=== PATIENT | female | born 1950 | race Caucasian/White ===

== ENCOUNTER 2021-02-28 10:06 | Outpatient (CLI) | payer MEDICARE | END 2021-02-28 10:07 | disposition home or self-care (01) | LOC: CSHWCC 10:06 | PROVIDERS: ATTEND Nurse Practitioner Family | DX: I87.331 Chronic venous hypertension (idiopathic) with ulcer and inflammation of right lower extremity (principal); E11.621 Type 2 diabetes mellitus with foot ulcer; L97.511 Non-pressure chronic ulcer of other part of right foot limited to breakdown of skin; E11.21 Type 2 diabetes mellitus with diabetic nephropathy; G99.0 Autonomic neuropathy in diseases classified elsewhere; I21.9 Acute myocardial infarction, unspecified; I25.84 Coronary atherosclerosis due to calcified coronary lesion; I70.203 Unspecified atherosclerosis of native arteries of extremities, bilateral legs; L97.512 Non-pressure chronic ulcer of other part of right foot with fat layer exposed; I89.0 Lymphedema, not elsewhere classified; J44.9 Chronic obstructive pulmonary disease, unspecified; M86.671 Other chronic osteomyelitis, right ankle and foot; Z72.0 Tobacco use | CPT/HCPCS: 97139; G0463; 99213 ==

== ENCOUNTER 2021-03-21 10:53 | Outpatient (CLI) | payer MEDICARE | END 2021-03-21 10:54 | disposition home or self-care (01) | LOC: CSHWCC 10:53 | PROVIDERS: ATTEND Nurse Practitioner Family | DX: E11.621 Type 2 diabetes mellitus with foot ulcer (principal); L97.511 Non-pressure chronic ulcer of other part of right foot limited to breakdown of skin; E11.21 Type 2 diabetes mellitus with diabetic nephropathy; E11.43 Type 2 diabetes mellitus with diabetic autonomic (poly)neuropathy; I21.9 Acute myocardial infarction, unspecified; I25.84 Coronary atherosclerosis due to calcified coronary lesion; E11.59 Type 2 diabetes mellitus with other circulatory complications; I70.203 Unspecified atherosclerosis of native arteries of extremities, bilateral legs; I87.331 Chronic venous hypertension (idiopathic) with ulcer and inflammation of right lower extremity; L97.512 Non-pressure chronic ulcer of other part of right foot with fat layer exposed; I89.0 Lymphedema, not elsewhere classified; J44.9 Chronic obstructive pulmonary disease, unspecified; M86.671 Other chronic osteomyelitis, right ankle and foot; Z72.0 Tobacco use | CPT/HCPCS: 11042; 97139; G0463; 99213 ==

== ENCOUNTER 2021-04-11 08:49 | Outpatient (CLI) | payer MEDICARE | END 2021-04-11 08:50 | disposition home or self-care (01) | LOC: CSHWCC 08:49 | PROVIDERS: ATTEND Nurse Practitioner Family | DX: I87.331 Chronic venous hypertension (idiopathic) with ulcer and inflammation of right lower extremity (principal); E11.621 Type 2 diabetes mellitus with foot ulcer; L97.512 Non-pressure chronic ulcer of other part of right foot with fat layer exposed; L97.516 Non-pressure chronic ulcer of other part of right foot with bone involvement without evidence of necrosis; I89.0 Lymphedema, not elsewhere classified; E11.69 Type 2 diabetes mellitus with other specified complication; E11.51 Type 2 diabetes mellitus with diabetic peripheral angiopathy without gangrene; E11.43 Type 2 diabetes mellitus with diabetic autonomic (poly)neuropathy; M86.671 Other chronic osteomyelitis, right ankle and foot; I70.203 Unspecified atherosclerosis of native arteries of extremities, bilateral legs; I25.84 Coronary atherosclerosis due to calcified coronary lesion; J44.9 Chronic obstructive pulmonary disease, unspecified; I21.9 Acute myocardial infarction, unspecified; E11.21 Type 2 diabetes mellitus with diabetic nephropathy; Z72.0 Tobacco use | CPT/HCPCS: 99213; G0463 ==

== ENCOUNTER 2021-09-18 08:14 | Outpatient (CLI) | payer MEDICARE | END 2021-09-18 08:15 | disposition home or self-care (01) | LOC: CSHWCC 08:14 | PROVIDERS: ATTEND Nurse Practitioner Family | DX: I87.331 Chronic venous hypertension (idiopathic) with ulcer and inflammation of right lower extremity (principal); E11.621 Type 2 diabetes mellitus with foot ulcer; L97.511 Non-pressure chronic ulcer of other part of right foot limited to breakdown of skin; L97.512 Non-pressure chronic ulcer of other part of right foot with fat layer exposed; I89.0 Lymphedema, not elsewhere classified; E11.21 Type 2 diabetes mellitus with diabetic nephropathy; G99.0 Autonomic neuropathy in diseases classified elsewhere; I21.9 Acute myocardial infarction, unspecified; I25.84 Coronary atherosclerosis due to calcified coronary lesion; I70.203 Unspecified atherosclerosis of native arteries of extremities, bilateral legs; J44.9 Chronic obstructive pulmonary disease, unspecified; M86.671 Other chronic osteomyelitis, right ankle and foot; Z72.0 Tobacco use | CPT/HCPCS: 11042; 97139; G0463; 99213 ==

== ENCOUNTER 2021-10-16 09:01 | Outpatient (CLI) | payer MEDICARE | END 2021-10-16 09:02 | disposition home or self-care (01) | LOC: CSHWCC 09:01 | PROVIDERS: ATTEND Nurse Practitioner Family | DX: I87.331 Chronic venous hypertension (idiopathic) with ulcer and inflammation of right lower extremity (principal); E11.21 Type 2 diabetes mellitus with diabetic nephropathy; E11.621 Type 2 diabetes mellitus with foot ulcer; L97.511 Non-pressure chronic ulcer of other part of right foot limited to breakdown of skin; G99.0 Autonomic neuropathy in diseases classified elsewhere; I25.2 Old myocardial infarction; I25.84 Coronary atherosclerosis due to calcified coronary lesion; I70.203 Unspecified atherosclerosis of native arteries of extremities, bilateral legs; L97.512 Non-pressure chronic ulcer of other part of right foot with fat layer exposed; I89.0 Lymphedema, not elsewhere classified; J44.9 Chronic obstructive pulmonary disease, unspecified; M86.671 Other chronic osteomyelitis, right ankle and foot; Z72.0 Tobacco use | CPT/HCPCS: 11042; 97139; G0463; 99212 ==

== ENCOUNTER 2021-11-06 08:58 | Outpatient (CLI) | payer MEDICARE | END 2021-11-06 08:59 | disposition home or self-care (01) | LOC: CSHWCC 08:58 | PROVIDERS: ATTEND Nurse Practitioner Family | DX: I87.331 Chronic venous hypertension (idiopathic) with ulcer and inflammation of right lower extremity (principal); E11.621 Type 2 diabetes mellitus with foot ulcer; L97.511 Non-pressure chronic ulcer of other part of right foot limited to breakdown of skin; L97.512 Non-pressure chronic ulcer of other part of right foot with fat layer exposed; E11.21 Type 2 diabetes mellitus with diabetic nephropathy; E11.43 Type 2 diabetes mellitus with diabetic autonomic (poly)neuropathy; I21.9 Acute myocardial infarction, unspecified; I25.10 Atherosclerotic heart disease of native coronary artery without angina pectoris; I25.84 Coronary atherosclerosis due to calcified coronary lesion; I70.203 Unspecified atherosclerosis of native arteries of extremities, bilateral legs; I89.0 Lymphedema, not elsewhere classified; E11.69 Type 2 diabetes mellitus with other specified complication; M86.671 Other chronic osteomyelitis, right ankle and foot; J44.9 Chronic obstructive pulmonary disease, unspecified; Z72.0 Tobacco use | CPT/HCPCS: 36416 ==

== ENCOUNTER 2021-12-19 14:37 | Outpatient (CLI) | payer MEDICARE | END 2021-12-19 14:38 | disposition home or self-care (01) | LOC: CSHWCC 14:37 | PROVIDERS: ATTEND Nurse Practitioner Family | DX: I87.331 Chronic venous hypertension (idiopathic) with ulcer and inflammation of right lower extremity (principal); E11.621 Type 2 diabetes mellitus with foot ulcer; E11.51 Type 2 diabetes mellitus with diabetic peripheral angiopathy without gangrene; E11.21 Type 2 diabetes mellitus with diabetic nephropathy; L97.511 Non-pressure chronic ulcer of other part of right foot limited to breakdown of skin; L97.512 Non-pressure chronic ulcer of other part of right foot with fat layer exposed; I70.203 Unspecified atherosclerosis of native arteries of extremities, bilateral legs; G99.0 Autonomic neuropathy in diseases classified elsewhere; I21.9 Acute myocardial infarction, unspecified; I25.84 Coronary atherosclerosis due to calcified coronary lesion; M86.671 Other chronic osteomyelitis, right ankle and foot; J44.9 Chronic obstructive pulmonary disease, unspecified; I89.0 Lymphedema, not elsewhere classified; Z72.0 Tobacco use | CPT/HCPCS: 97139; G0463; 99212 ==

== ENCOUNTER 2024-10-28 17:05 | Inpatient (IN) | payer MEDICARE ==
[2024-10-28] MEDS ORDERED: Ondansetron ODT 4 MG TAB PO PRN ×2 (17:31→19:30)
[2024-10-28] MEDS ORDERED: Dextrose 50% Abboject 50 ML SYRINGE SLOW IVP PRN (17:33)
[2024-10-28] MEDS ORDERED: Dextrose 5% in Water 1,000 ML IV PRN (17:33)
[2024-10-28] MEDS ORDERED: Insulin Lispro 100 UNIT/ML 10 ML VIAL SC PRN (17:33)
[2024-10-28] MEDS ORDERED: Glucagon 1 MG/ML KIT IM PRN (17:33)
[2024-10-28] MEDS ORDERED: hydrALAZINE 20 MG/ML VIAL SLOW IVP PRN (17:35)
[2024-10-28] MEDS ORDERED: Sodium Chloride 0.9% 1,000 ML IV SCH (17:45)
[2024-10-28] MEDS ORDERED: Ondansetron PF 4 MG/2 ML Vial IVP PRN (17:45)
[2024-10-28 17:47] VITALS: BMI 28.2
[2024-10-28] MEDS ORDERED: Heparin 5,000 UNITS/ML VIAL SC SCH (21:00)
[2024-10-28] MEDS ORDERED: Benzonatate 100 MG CAP PO PRN (21:50)
[2024-10-29 03:33] LABS: #Basophils 0.05 10x3/uL (0.0-0.2); #Eosinophils 0.02 10x3/uL (0.0-0.5); #Monocytes 0.73 10x3/uL (0.0-1.1); #Neutrophils 8.26 10x3/uL (1.5-8.4); %Basophils 0.5 % (0.0-2.0); %Eosinophils 0.2 % (0.0-6.0); %Lymphocytes 12.6 % (18.0-47.0); %Neutrophils 79.4 % (40.0-75.0); Hematocrit 41.8 % (34.9-44.5); Hemoglobin 14.1 g/dL (12.0-15.5); Mean Corpuscular HGB CONC 33.7 g/dL (32.0-36.0); Mean Corpuscular Hemoglobin 28.8 pg (27.0-33.0); Mean Corpuscular Volume 85.5 fL (81.6-98.3); Mean Platelet Volume 9.7 fL (7.4-10.4); Platelet Count 270 10x3/uL (150-450); RBC Distribution Width 14.6 % (11.5-14.5); Red Blood Cell (RBC) Count 4.89 10x6/uL (3.90-5.03); White Blood Cell (WBC) Count 10.4 10x3/uL (3.5-10.5)
[2024-10-29 03:54] LABS: ALT (SGPT) 24 U/L (8-55); AST (SGOT) 25 U/L (5-34); Albumin 3.1 g/dL (3.4-4.8); Alkaline Phosphatase 114 U/L (40-110); Anion Gap 16 mmol/L (10-20); BUN (Urea Nitrogen) 23 mg/dL (9.8-20.1); Bilirubin, Total 0.7 mg/dL (0.2-1.2); Calc. Creatinine Clearance 40 mL/min (70-130); Calcium 8.5 mg/dL (7.8-10.44); Carbon Dioxide 18 mmol/L (23-31); Chloride 112 mmol/L (98-107); Estimated GFR 37; Globulin 3.1 g/dL (2.4-3.5); Glucose 243 mg/dL (83-110); Potassium 3.5 mmol/L (3.5-5.1); Protein, Total 6.2 g/dL (5.8-8.1); Sodium 142 mmol/L (136-145)
[2024-10-29 06:54] LABS: Hematocrit 41.5 % (34.9-44.5); Mean Corpuscular HGB CONC 33.7 g/dL (32.0-36.0); Mean Corpuscular Hemoglobin 28.8 pg (27.0-33.0); Mean Corpuscular Volume 85.4 fL (81.6-98.3); Red Blood Cell (RBC) Count 4.86 10x6/uL (3.90-5.03); White Blood Cell (WBC) Count 10.1 10x3/uL (3.5-10.5)
[2024-10-29 06:55] LABS: #Basophils 0.06 10x3/uL (0.0-0.2); #Eosinophils 0.03 10x3/uL (0.0-0.5); #Monocytes 0.51 10x3/uL (0.0-1.1); #Neutrophils 8.03 10x3/uL (1.5-8.4); %Basophils 0.6 % (0.0-2.0); %Eosinophils 0.3 % (0.0-6.0); %Lymphocytes 14.3 % (18.0-47.0); %Neutrophils 79.5 % (40.0-75.0); Platelet Count 278 10x3/uL (150-450); RBC Distribution Width 14.6 % (11.5-14.5)
[2024-10-29 07:12] LABS: Bilirubin, Total 0.7 mg/dL (0.2-1.2); Calcium 8.3 mg/dL (7.8-10.44); Chloride 112 mmol/L (98-107); Potassium 3.7 mmol/L (3.5-5.1); Sodium 142 mmol/L (136-145)
[2024-10-29 07:29] LABS: ALT (SGPT) 25 U/L (8-55); AST (SGOT) 25 U/L (5-34); Albumin 3.2 g/dL (3.4-4.8); Alkaline Phosphatase 120 U/L (40-110); Anion Gap 17 mmol/L (10-20); BUN (Urea Nitrogen) 22 mg/dL (9.8-20.1); Calc. Creatinine Clearance 40 mL/min (70-130); Carbon Dioxide 17 mmol/L (23-31); Estimated GFR 36; Globulin 2.8 g/dL (2.4-3.5); Glucose 266 mg/dL (83-110)
[2024-10-29 09:49] LABS: Magnesium 1.7 mg/dL (1.6-2.6)
[2024-10-29] MEDS: Pregabalin 50 MG CAP PO SCH ×2 (12:17→21:45)
[2024-10-29] MEDS: Aspirin 81 mg Enteric Coated Tablet PO SCH (12:18)
[2024-10-29] MEDS: Insulin Lispro 100 UNIT/ML 10 ML VIAL SC PRN ×2 (12:19→21:51)
[2024-10-29 12:45] LABS: Hemoglobin A1c 9.3 % (4.0-6.0)
[2024-10-29] MEDS: Acetaminophen 325 MG TAB PO PRN (13:56)
[2024-10-29] MEDS: Lisinopril 20 MG TAB PO SCH (14:26)
[2024-10-29] MEDS: Sodium Chloride 0.9% 1,000 ML IV SCH (17:45)
[2024-10-29] MEDS: Magnesium 2 GM/50 ML(in water) 2 GM in Premix 1 BAG IVPB SCH (18:51)
[2024-10-29] MEDS: traMADol HCl 50 MG TAB PO PRN (21:43)
[2024-10-29] MEDS: Atorvastatin Calcium 20 MG TAB PO SCH (21:43)
[2024-10-29] MEDS: Apixaban 2.5 MG TAB PO SCH (21:44)
[2024-10-30 04:00] LABS: #Basophils 0.06 10x3/uL (0.0-0.2); #Eosinophils 0.16 10x3/uL (0.0-0.5); #Monocytes 0.56 10x3/uL (0.0-1.1); #Neutrophils 5.44 10x3/uL (1.5-8.4); %Basophils 0.8 % (0.0-2.0); %Lymphocytes 20.7 % (18.0-47.0); %Monocytes 7.1 % (0.0-10.0); %Neutrophils 69.1 % (40.0-75.0); Hematocrit 37.8 % (34.9-44.5); Hemoglobin 12.8 g/dL (12.0-15.5); Mean Corpuscular HGB CONC 33.9 g/dL (32.0-36.0); Mean Corpuscular Hemoglobin 28.6 pg (27.0-33.0); Mean Corpuscular Volume 84.4 fL (81.6-98.3); Mean Platelet Volume 9.8 fL (7.4-10.4); Platelet Count 245 10x3/uL (150-450); RBC Distribution Width 14.7 % (11.5-14.5); Red Blood Cell (RBC) Count 4.48 10x6/uL (3.90-5.03); White Blood Cell (WBC) Count 7.9 10x3/uL (3.5-10.5)
[2024-10-30 04:09] LABS: Anion Gap 10 mmol/L (10-20); BUN (Urea Nitrogen) 18 mg/dL (9.8-20.1); Calc. Creatinine Clearance 49 mL/min (70-130); Calcium 8.5 mg/dL (7.8-10.44); Carbon Dioxide 20 mmol/L (23-31); Chloride 114 mmol/L (98-107); Estimated GFR 46; Glucose 173 mg/dL (83-110); Potassium 3.2 mmol/L (3.5-5.1); Sodium 141 mmol/L (136-145)
[2024-10-30] MEDS: Acetaminophen 325 MG TAB PO PRN (05:08)
[2024-10-30] MEDS: hydrALAZINE 20 MG/ML VIAL SLOW IVP PRN ×2 (05:08→23:25)
[2024-10-30] MEDS: Clopidogrel Bisulfate 75 MG TAB PO SCH (05:24)
[2024-10-30] MEDS: FLU (Fluad Triv) TS24-25 (65UP)/MF59C/PF 45 MCG/0.5 ML Syringe IM ONE (05:38)
[2024-10-30] MEDS: Ondansetron ODT 4 MG TAB ONE (05:38)
[2024-10-30] MEDS: Acetaminophen 325 MG TAB ONE (05:38)
[2024-10-30] MEDS: FLUoxetine HCl 20 MG CAP PO SCH (08:06)
[2024-10-30] MEDS: Aspirin 81 mg Enteric Coated Tablet PO SCH (08:06)
[2024-10-30] MEDS: Amlodipine 10 MG TAB PO SCH (08:07)
[2024-10-30] MEDS: Famotidine/PF 20 mg/2ml Vial SLOW IVP SCH ×2 (08:13→09:32)
[2024-10-30] MEDS: Pregabalin 50 MG CAP PO SCH (08:51)
[2024-10-30] MEDS: traMADol HCl 50 MG TAB PO SCH (08:52)
[2024-10-30] MEDS: Non-Formulary Medication 1 EACH (Pravastatin Sodium [Pravastatin Sodium] 80 MG Tablet) PO SCH (09:34)
[2024-10-30] MEDS ORDERED: Electrolyte Replacement Protocol 1 EACH FS PRN (09:58)
[2024-10-30] MEDS: Magnesium 2 GM/50 ML(in water) 2 GM in Premix 1 BAG IVPB SCH (10:36)
[2024-10-30] MEDS: Potassium Chloride 20 MEQ TAB PO SCH (10:36)
[2024-10-30] MEDS: Lantus 1000 UNITS/10 ML VIAL SC SCH ×2 (14:00→20:29)
[2024-10-30] MEDS ORDERED: Pregabalin 50 MG CAP PO SCH (21:00)
[2024-10-31 01:51] LABS: Bilirubin Neg (Negative); Blood, Urine 25 (Negative); Clarity Cloudy (Clear); Glucose, Urine (Dipstick) 250 mg/dL (Negative); Ketone, Urine Negative (Negative); Leukocyte 500 (Negative); Nitrite Negative (Negative); Protein, Urine (Dipstick) 30 mg/dl (Neg-Trace); Specific Gravity, Urine 1.005 (1.005-1.030); Urobilinogen Normal mg/dL (Less than 2)
[2024-10-31 02:00] LABS: Bacteria/HPF 4+ HPF (None Seen); RBC/HPF 0-3 HPF (0-3); Squamous Epithelial 0-3 HPF (0-3); WBC/HPF Greater Than 50 HPF (0-3)
[2024-10-31] MEDS: cefTRIAXone\\ROCEPHIN 1 GM in Sodium Chloride 0.9% 100 ML IVPB SCH (02:56)
[2024-10-31 04:28] LABS: Anion Gap 11 mmol/L (10-20); BUN (Urea Nitrogen) 19 mg/dL (9.8-20.1); Calc. Creatinine Clearance 44 mL/min (70-130); Carbon Dioxide 21 mmol/L (23-31); Chloride 110 mmol/L (98-107); Estimated GFR 41; Glucose 247 mg/dL (83-110); Magnesium 2.1 mg/dL (1.6-2.6); Potassium 3.8 mmol/L (3.5-5.1); Sodium 138 mmol/L (136-145)
[2024-10-31] MEDS: Cilostazol 100 MG TAB PO SCH (08:21)
[2024-10-31] MEDS: traMADol HCl 50 MG TAB PO PRN (08:21)
[2024-10-31] MEDS: FLUoxetine HCl 20 MG CAP PO SCH (08:26)
[2024-10-31] MEDS ORDERED: Lantus 1000 UNITS/10 ML VIAL SC SCH (09:00)
[2024-10-31] MEDS: Lactated Ringer's 1,000 ML IV SCH (09:48)
[2024-10-31] MEDS: Lisinopril 20 MG TAB PO SCH (20:42)
[2024-11-01 03:59] LABS: Anion Gap 12 mmol/L (10-20); BUN (Urea Nitrogen) 20 mg/dL (9.8-20.1); Calc. Creatinine Clearance 40 mL/min (70-130); Calcium 8.3 mg/dL (7.8-10.44); Carbon Dioxide 21 mmol/L (23-31); Chloride 110 mmol/L (98-107); Estimated GFR 36; Glucose 228 mg/dL (83-110); Potassium 3.2 mmol/L (3.5-5.1); Sodium 140 mmol/L (136-145)
[2024-11-01 04:17] VITALS: TEMP 98.3
[2024-11-01] MEDS: Potassium Chloride 20 MEQ TAB PO SCH ×2 (05:25→10:34)
[2024-11-01 09:45] VITALS: BP 144/62
[2024-11-03 05:15] LABS: Adenovirus F 40-41 Not Detected (Not Detected); Astrovirus Not Detected (Not Detected); C. difficile toxin A+B Not Detected (Not Detected); Campylobacter by PCR Not Detected (Not Detected); Cryptosporidium Not Detected (Not Detected); Cyclospora cayetanensis Not Detected (Not Detected); Entamoeba histolytica Not Detected (Not Detected); Enteroaggregative E. coli Not Detected (Not Detected); Enteropathogenic E. coli Not Detected (Not Detected); Enterotoxigenic E. coli Not Detected (Not Detected); Giardia lamblia Not Detected (Not Detected); Norovirus GI-GII Not Detected (Not Detected); Plesiomonas shigelloides Not Detected (Not Detected); Rotavirus A Not Detected (Not Detected); Salmonella Not Detected (Not Detected); Sapovirus Not Detected (Not Detected); Shiga-toxin-producing E coli Not Detected (Not Detected); Shigella/Enteroinvasive E coli Not Detected (Not Detected); Vibrio Not Detected (Not Detected); Vibrio cholerae Not Detected (Not Detected); Yersinia enterocolitica Not Detected (Not Detected)
== END 2024-11-01 10:40 | disposition home or self-care (01) | DRG 392 ==
LOC: CSHTELE 17:05
PROVIDERS: ADMIT Internal Medicine; ATTEND Internal Medicine
DX: K52.9 Noninfective gastroenteritis and colitis, unspecified (principal); N17.9 Acute kidney failure, unspecified; N39.0 Urinary tract infection, site not specified; I25.10 Atherosclerotic heart disease of native coronary artery without angina pectoris; Z95.5 Presence of coronary angioplasty implant and graft; Z95.1 Presence of aortocoronary bypass graft; J44.9 Chronic obstructive pulmonary disease, unspecified; E11.65 Type 2 diabetes mellitus with hyperglycemia; N18.9 Chronic kidney disease, unspecified; I12.9 Hypertensive chronic kidney disease with stage 1 through stage 4 chronic kidney disease, or unspecified chronic kidney disease; E11.22 Type 2 diabetes mellitus with diabetic chronic kidney disease; E87.6 Hypokalemia; Z66 Do not resuscitate; Z88.2 Allergy status to sulfonamides; Z90.49 Acquired absence of other specified parts of digestive tract; Z90.710 Acquired absence of both cervix and uterus; Z87.891 Personal history of nicotine dependence; I16.0 Hypertensive urgency; Z91.148 Patient's other noncompliance with medication regimen for other reason
CPT/HCPCS: 36415; 36416; 80048; 80053; 81001; 82010; 83036; 83735; 83880; 84132; 85025; 87077; 87086; 87186; 87324; 87449; 87507; J0360; J0696; J1815; J3475; J3490; J7030; J7120

== ENCOUNTER 2025-08-31 13:22 | Inpatient (IN) | payer OTHER ==
[2025-08-31 14:50] VITALS: BMI 30.1
[2025-08-31] MEDS ORDERED: Melatonin 3 MG TAB PO PRN (15:14)
[2025-08-31] MEDS ORDERED: Ondansetron PF 4 MG/2 ML Vial IVP PRN (15:14)
[2025-08-31] MEDS ORDERED: Electrolyte Replacement Protocol 1 EACH FS PRN (15:15)
[2025-08-31] MEDS ORDERED: Acetaminophen 325 MG TAB PO PRN (16:13)
[2025-08-31] MEDS ORDERED: oxyCODONE 5 MG TAB PO PRN (16:13)
[2025-08-31] MEDS: Metoprolol Succinate XL 25 MG ER.TAB PO SCH (17:48)
[2025-08-31] MEDS: oxyCODONE 5 MG TAB PO PRN (18:25)
[2025-08-31] MEDS: Famotidine 20 MG TAB PO SCH (20:17)
[2025-08-31] MEDS: Rosuvastatin 10 MG TAB PO SCH (20:17)
[2025-08-31] MEDS: Acetaminophen 325 MG TAB PO PRN (20:18)
[2025-08-31 20:30] VITALS: BP 141/66; TEMP 98.2
[2025-09-01] MEDS ORDERED: Metoprolol Succinate XL 25 MG ER.TAB PO SCH (09:00)
[2025-09-01] MEDS ORDERED: cefTRIAXone\\ROCEPHIN 1 GM in Sodium Chloride 0.9% 100 ML IVPB SCH (13:00)
== END 2025-08-31 20:30 | disposition still patient (30) | DRG 683 ==
LOC: CSHTELE 14:24
PROVIDERS: ADMIT Student in an Organized Health Care Education/Training Program; ATTEND Student in an Organized Health Care Education/Training Program
DX: N17.9 Acute kidney failure, unspecified (principal); D62 Acute posthemorrhagic anemia; I25.10 Atherosclerotic heart disease of native coronary artery without angina pectoris; I73.9 Peripheral vascular disease, unspecified; E78.5 Hyperlipidemia, unspecified; R31.0 Gross hematuria; R33.8 Other retention of urine; K58.9 Irritable bowel syndrome, unspecified; I12.9 Hypertensive chronic kidney disease with stage 1 through stage 4 chronic kidney disease, or unspecified chronic kidney disease; N18.9 Chronic kidney disease, unspecified; Z95.5 Presence of coronary angioplasty implant and graft; Z95.1 Presence of aortocoronary bypass graft; Z79.01 Long term (current) use of anticoagulants; Z79.02 Long term (current) use of antithrombotics/antiplatelets; Z79.899 Other long term (current) drug therapy; Z98.890 Other specified postprocedural states; Z88.8 Allergy status to other drugs, medicaments and biological substances; Z88.2 Allergy status to sulfonamides; Z79.4 Long term (current) use of insulin; Z79.84 Long term (current) use of oral hypoglycemic drugs; Z95.828 Presence of other vascular implants and grafts

== ENCOUNTER 2025-10-13 09:59 | Outpatient (CLI) | payer OTHER ==
[2025-10-13 11:50] LABS: Estimated GFR - POC 22.0
== END 2025-10-13 10:00 | disposition home or self-care (01) ==
LOC: CSHCT 09:59
PROVIDERS: ATTEND Urology
DX: R31.0 Gross hematuria (principal); D17.71 Benign lipomatous neoplasm of kidney; N94.89 Other specified conditions associated with female genital organs and menstrual cycle
CPT/HCPCS: 74176; 82565